=== PATIENT | male | born 1975 | race Caucasian/White ===

== ENCOUNTER 2019-07-31 18:03 | Emergency (ER) | payer SELFPAY ==
[~2019-07-31] VITALS: Ht 177.8 cm; Wt 72.6 kg
[2019-07-31] MEDS ORDERED: GLUCOPHAGE XR750 MG PO (18:17)
[2019-07-31] MEDS ORDERED: HUMALOG100 UNIT/2 SUB-Q (18:18)
[2019-07-31] MEDS ORDERED: NORCO 5-325 TA1 EACH PO (19:02)
[2019-07-31] MEDS ORDERED: CLEOCIN HCL300 MG PO (19:02)
== END 2019-07-31 19:50 | disposition home or self-care (01) ==
LOC: ED 18:03
DX: L02.512 Cutaneous abscess of left hand (principal); L02.414 Cutaneous abscess of left upper limb; L02.413 Cutaneous abscess of right upper limb; E11.9 Type 2 diabetes mellitus without complications; F17.200 Nicotine dependence, unspecified, uncomplicated; Z88.5 Allergy status to narcotic agent; Z79.4 Long term (current) use of insulin
CPT/HCPCS: 96365; 96375; 99283-25; J1885

== ENCOUNTER 2019-08-05 21:19 | Emergency (ER) | payer MEDICAID ==
[~2019-08-05] VITALS: Ht 177.8 cm; Wt 72.6 kg
[~2019-08-05 21:19] MED LIST: CLEOCIN HCL300 MG PO; GLUCOPHAGE XR750 MG PO; HUMALOG100 UNIT/2 SUB-Q; NORCO 5-325 TA1 EACH PO
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
[2019-08-05] MEDS ORDERED: CYCLOBENZAPRINE10 MG PO (23:11)
== END 2019-08-05 23:20 | disposition home or self-care (01) ==
LOC: ED 21:19
DX: S16.1XXA Strain of muscle, fascia and tendon at neck level, initial encounter (principal); E11.9 Type 2 diabetes mellitus without complications; F17.200 Nicotine dependence, unspecified, uncomplicated; Z88.5 Allergy status to narcotic agent; Z79.899 Other long term (current) drug therapy; Z79.4 Long term (current) use of insulin; V89.2XXA Person injured in unspecified motor-vehicle accident, traffic, initial encounter
CPT/HCPCS: 70450; 72125; 99284-25

== ENCOUNTER → 2019-08-21 | Emergency (ER) | payer MEDICAID ==
[~2019-08-21] VITALS: Ht 177.8 cm; Wt 72.6 kg
[~2019-08-21] MED LIST changes: +CYCLOBENZAPRINE10 MG PO
--- NOTE | ~2019-08-21 | EKG ---
[facility] [address] [place], [place] [address] Draft EK completed, results pending confirmation PATIENT NAME: KOBY DOBSON Electrocardiogram DATE OF : 71 PHYSICIAN: PRELIMINARY REPORT #: [id number] REPORT IS CONFIDENTIAL AND NOT TO BE RELEASED WITHOUT AUTHORIZATION
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
== END ==
LOC: ED 15:46
DX: I63.9 Cerebral infarction, unspecified (principal); E11.9 Type 2 diabetes mellitus without complications; F17.200 Nicotine dependence, unspecified, uncomplicated; Z88.5 Allergy status to narcotic agent; Z79.899 Other long term (current) drug therapy; Z79.4 Long term (current) use of insulin
CPT/HCPCS: 70450; 70496; 70498; 71045; 80053; 84484; 85025; 85610; 85730; 93005; 93010; 99285-25; J2997; Q3014; Q9967